=== PATIENT | male | born 1955 | race Caucasian/White ===

== ENCOUNTER 2018-09-26 16:56 | Emergency (ER) | payer OTHER ==
[~2018-09-26] VITALS: Ht 180.3 cm; Wt 77.1 kg
[2018-09-26] MEDS ORDERED: NAPROSYN500 MG PO (18:28)
[2018-09-26] MEDS ORDERED: TYLENOL325 M1 PO (18:28)
[2018-09-26] MEDS ORDERED: PENICILLIN-VK500 MG PO (18:28)
== END 2018-09-26 17:58 | disposition home or self-care (01) ==
LOC: ED 16:56
DX: K02.9 Dental caries, unspecified (principal); F17.200 Nicotine dependence, unspecified, uncomplicated